=== PATIENT | female | born 1990 | race African-American/Black ===

== ENCOUNTER 2019-05-30 11:15 | Inpatient (IN) ==
[2019-05-30 12:36] LABS: Basophils # 0.1 10*3/uL (0.0-0.2); Basophils % 0.4 % (0.0-0.8); Eosinophils # 0.2 10*3/uL (0.0-0.87); Eosinophils % 1.7 % (0.00-10.9); Hematocrit 38.5 VOL% (35.7-47.0); Hemoglobin 11.9 GM/DL (12.0-16.0); Immature Granulocytes % 0.5 %; Immature Granulocytes Absolute 0.06 #; Lymphocytes # 2.1 10*3/uL (1.4-4.0); Mean Corpuscular HGB Conc 30.9 GM/DL (32-36); Mean Corpuscular Volume 93.4 FL (87-102); Mean Platelet Volume 9.1 FL (9.6-12.0); Monocytes % 7.2 % (1.7-12.7); Neutrophils % 74.2 % (38.7-73.9); Platelet Count 301 T/CUMM (130-400); Red Blood Count 4.12 MC/CUMM (3.8-5.5); Red Cell Distribution Width 14.9 % (9.3-17.3); White Blood Count 12.9 T/CUMM (4-12)
[2019-05-30 12:43] LABS: Apearance,Urine CLEAR (Clear); Bilirubin,Urine Negative (Negative); Blood, Urine Negative (Negative); Glucose,Urine (UA) Negative (Negative); Ketones,Urine Negative (Negative); Mucus,Urine Many /LPF (Occasional); Nitrite,Urine Negative (Negative); Protein,Urine Negative; RBC,Urine 1 /HPF (0-4); Squamous Epithelial Cell,Urine Occasional /HPF (0-10); Urine Color Yellow (Yellow); Urine Specific Gravity 1.021 (1.001-1.035); WBC,Urine 1 /HPF (0-6)
[2019-05-30] MEDS ORDERED: ONDANSETRON 4 MG/2 ML VIAL IV PRN (12:47)
[2019-05-30] MEDS ORDERED: KETOROLAC 10 MG TABLET PO PRN (12:47)
[2019-05-30] MEDS ORDERED: ALBUTEROL/IPRATROPIUM 3 ML NEB RESP TX PRN (12:47)
[2019-05-30] MEDS ORDERED: HYDROmorphone 2 MG/1 ML VIAL IV PRN (12:47)
[2019-05-30] MEDS ORDERED: ACETAMINOPHEN 325 MG TABLET PO PRN (12:47)
[2019-05-30 12:56] LABS: Albumin 3.2 G/DL (3.4-5.0); Bilirubin,Total 0.5 MG/DL (0.2-1.0); Calcium 8.7 MG/DL (8.5-10.1); Osmolality,Calculated 278.3 MOS/KG (273-304); Total Protein 6.2 G/DL (6.4-8.3)
[2019-05-30] MEDS: LACTATED RINGERS 1,000 ML IV SCH (13:45)
[2019-05-30] MEDS: PIPERACILLIN/TAZOBACTAM 3,375 MG in SODIUM CHLORIDE 0.9% 100 ML IV SCH ×2 (13:46→20:47)
[2019-05-30] MEDS: DOCUSATE SODIUM 100 MG CAPSULE PO SCH (20:47)
[2019-05-31 05:45] LABS: Basophils % 0.3 % (0.0-0.8); Eosinophils # 0.3 10*3/uL (0.0-0.87); Eosinophils % 2.2 % (0.00-10.9); Hematocrit 34.4 VOL% (35.7-47.0); Hemoglobin 10.7 GM/DL (12.0-16.0); Immature Granulocytes % 0.5 %; Immature Granulocytes Absolute 0.06 #; Lymphocytes % 15.3 % (21.3-54.2); Mean Corpuscular HGB Conc 31.1 GM/DL (32-36); Mean Corpuscular Volume 92.7 FL (87-102); Mean Platelet Volume 9.2 FL (9.6-12.0); Monocytes % 8.5 % (1.7-12.7); Neutrophils % 73.2 % (38.7-73.9); Platelet Count 289 T/CUMM (130-400); Red Blood Count 3.71 MC/CUMM (3.8-5.5); Red Cell Distribution Width 14.7 % (9.3-17.3)
[2019-05-31 05:53] LABS: Calcium 8.2 MG/DL (8.5-10.1); Osmolality,Calculated 278.3 MOS/KG (273-304)
[2019-05-31] MEDS: PIPERACILLIN/TAZOBACTAM 3,375 MG in SODIUM CHLORIDE 0.9% 100 ML IV SCH (05:56)
[2019-05-31] MEDS ORDERED: PROPOFOL 200 MG/20 ML VIAL IV ONE (08:27)
[2019-05-31] MEDS ORDERED: ONDANSETRON 4 MG/2 ML VIAL ONE (08:28)
[2019-05-31] MEDS ORDERED: KETOROLAC 30 MG/1 ML VIAL ONE (08:28)
[2019-05-31] MEDS ORDERED: SEVOFLURANE 1 UNIT/15 MINUTE INH ONE (08:28)
[2019-05-31] MEDS ORDERED: MIDAZOLAM 2 MG/2 ML VIAL ONE (08:28)
[2019-05-31] MEDS ORDERED: fentaNYL 100 MCG/2 ML VIAL ONE (08:28)
[2019-05-31] MEDS ORDERED: DEXAMETHASONE 4 MG/1 ML VIAL ONE (08:28)
[2019-05-31] MEDS: LACTATED RINGERS 1,000 ML IV SCH (08:59)
[2019-05-31] MEDS: DOCUSATE SODIUM 100 MG CAPSULE PO SCH (08:59)
[2019-05-31] MEDS ORDERED: PANTOPRAZOLE 40 MG TABLET PO SCH (09:00)
[2019-05-31] MEDS ORDERED: AMOXICILLIN/CLAV 875 MG TABLET PO SCH (11:19)
[2019-05-31 12:06] VITALS: BP 119/67
== END 2019-05-31 14:20 | disposition home or self-care (01) | DRG 349 ==
LOC: N.ED 11:15 → N.EDINP 12:47 → N.3E 14:58
PROVIDERS: ADMIT Surgery; ATTEND Surgery